=== PATIENT | male | born 1995 | race Caucasian/White ===

== ENCOUNTER 2018-05-04 12:33 | Emergency (ER) | payer BC ==
[2018-05-04 12:57] VITALS: BP 133/95; PULSE 84; RESP 16; TEMP 98.2; O2SAT 98
--- NOTE | 2018-05-04 13:14 | C.PDOC ---
History Of Present Illness 23 year old male presents to ED complaining of acute sciatic pain that was treated at an urgent care in [place] 4 days ago. Patient states the pain is a 5 and starts at the left buttocks that radiates down to the left thigh. Patient reports being prescribed robaxin and naproxen that relieves the pain for about an hour then wears off. Patient reports being diagnosed with a herniated disc in [place] four year ago and has had on and off sciatic pain since then. Denies, fever, chills, cough, shortness of breath, chest pain, nausea, vomiting, problems urinating, problems with bowel movement. Time Seen by Provider: 05/04/18 13:01 Chief Complaint (Nursing): Lower Extremity Problem/Injury History Per: Patient History/Exam Limitations: no limitations Onset/Duration Of Symptoms: Days Current Symptoms Are (Timing): Still Present Pain Scale Rating Of: 5 Past Medical History Reviewed: Historical Data, Nursing Documentation, Vital Signs Vital Signs: Last Vital Signs Temp 98.2 F 05/04/18 12:54 Pulse 84 05/04/18 12:54 Resp 16 05/04/18 12:54 BP 133/95 H 05/04/18 12:54 Pulse Ox 98 05/04/18 12:54 Surgical History: No Surg Hx Family History: States: Diabetes - Social History Hx Alcohol Use: No Hx Substance Use: No Review Of Systems Except As Marked, All Systems Reviewed And Found Negative. Constitutional: Negative for: Fever, Chills Cardiovascular: Negative for: Chest Pain Respiratory: Negative for: Cough, Shortness of Breath Gastrointestinal: Negative for: Nausea, Vomiting Genitourinary: Negative for: Incontinence Musculoskeletal: Positive for: Leg Pain (Acute sciatic pain that starts at the left buttocks and radiates to left thigh. ) Physical Exam - Physical Exam Appears: Non-toxic, No Acute Distress Skin: Warm, Dry Head: Atraumatic, Normacephalic Eye(s): bilateral: Normal Inspection Chest: Symmetrical, No Deformity Cardiovascular: Rhythm Regular Respiratory: Normal Breath Sounds, No Rales, No Rhonchi, No Wheezing Extremity: Tenderness (mild tenderness to left SI joint. ) Neurological/Psych: Oriented x3, Normal Motor, Normal Sensation, Other (No neurovascular deficits. ) Gait: Steady ED Course And Treatment O2 Sat by Pulse Oximetry: 98 (RA) Pulse Ox Interpretation: Normal Medical Decision Making Medical Decision Making: Initial Impression: Exacerbation of sciatica. Initial Plan: * D/C on steroids and neurontin. Disposition - Disposition Referrals: Jovi Renteria MD [Staff Provider] - Disposition: HOME/ ROUTINE Disposition Time: 13:11 Condition: STABLE Additional Instructions: Mr. Mario, thank you for letting us take care of you today. Return to the ER if your symptoms worsen, or if any problems. Take the medication listed below as prescribed. Follow up with Dr. Jovi Renteria--he is a neurosurgeon. You have to call him to make an appointment. His phone number is below. 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 Your prescriptions were transmitted electronically to [facility] on [address] [place] [address]. / Prescriptions: Gabapentin [Neurontin] 1 tab PO DAILY #15 cap Methylprednisolone [Medrol Dose Pack (21 tabs)] 4 mg PO DAILY #21 mg Instructions: Sciatica Forms: [facility] (Urdu), Work Excuse Print Language: [facility] - POA Present On Arrival: None - Clinical Impression Clinical Impression: Sciatica - Scribe Statement The provider has reviewed the documentation as recorded by the Maria Elena Simon Josh Provider Attestation: All medical record entries made by the Maria Elena were at my direction and personally dictated by me. I have reviewed the chart and agree that the record accurately reflects my personal performance of the history, physical exam, medical decision making, and the department course for this patient. I have also personally directed, reviewed, and agree with the discharge instructions and disposition.
== END 2018-05-04 13:53 | disposition home or self-care (01) ==
LOC: C.ER 12:33
DX: M54.32 Sciatica, left side (principal)